=== PATIENT | male | born 1960 | race Caucasian/White ===

== ENCOUNTER → 2020-04-27 11:37 | Outpatient (CLI) | payer OTHER, SELFPAY ==
[2020-04-27 12:28] LABS: INR 1.5 (0.9-1.3)
[2020-04-27 12:31] LABS: Add Manual Diff / Slide Review NO; Basophils Absolute Auto 0 /uL (0-100); Basophils Percent Auto 0.9 % (0-2); Eosinophils Absolute Auto 500 /uL (0-450); Eosinophils Percent Auto 13.6 % (2-4); Hematocrit 40.5 % (41-53); Hemoglobin 13.7 g/dL (13.5-17.5); Lymphocytes Absolute Auto 1100 /uL (1100-4500); Lymphocytes Percent Auto 32.8 % (25-40); Mean Corpuscular HGB Conc 33.8 % (30-36); Mean Corpuscular Hemoglobin 33.6 PG (26-34); Mean Corpuscular Volume 99.5 fL (80-100); Monocytes Absolute Auto 200 /uL (0-900); Monocytes Percent Auto 5.6 % (3-14); Neutrophils Absolute Auto 1600 /uL (1500-7000); Neutrophils Percent Auto 47.1 % (50-75); Platelet Count 90 X10^3/uL (150-400); Red Blood Cell Count 4.07 X10^6/uL (4.5-5.9); Red Cell Distribution Width 14.9 % (11.6-14.8); White Blood Cell Count 3.4 X10^3/uL (4.5-11.0)
[2020-04-27 12:35] LABS: Alanine Aminotransferase 36 IU/L (<50); Albumin 3.7 g/dL (3.5-5.0); Alkaline Phosphatase 157 U/L (38-126); Aspartate Aminotransferase 69 IU/L (17-59); BUN Creatinine Ratio 12.8 (6-22); Bilirubin Total 2.5 mg/dL (0.2-1.3); Blood Urea Nitrogen 12 mg/dL (9-20); Calcium 9.2 mg/dL (8.4-10.2); Carbon Dioxide 26 mmol/L (22-32); Chloride 108 mmol/L (98-107); Estimated Glomerular Filt Rate > 60.0 mL/min (>60); Globulin 3.6 g/dL (1.7-4.1); Glucose 133 mg/dL (70-100); HEMOLYSIS < 15 (0-50); Sodium 139 mmol/L (137-145); Total Protein 7.3 g/dL (6.3-8.2)
[2020-04-27 13:09] LABS: Ferritin 252 ng/mL (18-464)
[2020-04-27 13:40] LABS: Total Iron Binding Capacity 340 ug/dL (261-462)
[2020-04-28 07:36] LABS: Alpha 1 Anti Trypsin 154 mg/dL (101-187); Ceruloplasmin 24.5 mg/dL (16.0-31.0); Hepatitis A Antibody Total Positive (Negative); Hepatitis B Surf AB Quant <3.1 mIU/mL (Immunity>9.9)
[2020-04-29 15:34] LABS: Hepatitis B Surface Antigen NEGATIVE s/c (NEGATIVE)
[2020-04-29 15:52] LABS: Hep C Virus Ab w/Reflex Quant REACTIVE s/c (NEGATIVE)
[2020-05-01 09:02] LABS: Anti Mitochondrial ABY IGG <20.0 Units (0.0-20.0); Smooth Muscle Antibody 8 Units (0-19)
== END ==
PROVIDERS: Referring Provider Internal Medicine Gastroenterology; Visit Provider Internal Medicine Gastroenterology
DX: K70.31 Alcoholic cirrhosis of liver with ascites (principal)
CPT/HCPCS: 36415; 80053; 82103; 82390; 82728; 83516; 83550; 85025; 85610; 86706; 86708; 86803; 87340; 87522

== ENCOUNTER → 2020-05-20 11:15 | Outpatient (CLI) | payer OTHER, SELFPAY ==
[2020-05-20 12:43] LABS: COVID19 -Nasal RAPID Negative (Negative)
== END ==
PROVIDERS: Visit Provider Physician Assistant
DX: Z11.59 Encounter for screening for other viral diseases (principal)
CPT/HCPCS: 87635

== ENCOUNTER 2020-05-22 07:11 | Day surgery (SDC) | payer OTHER, SELFPAY ==
[2020-05-22 07:47] VITALS: BP 121/74; PULSE 85; RESP 20; TEMP 36.6; O2SAT 98; BMI 25.8
--- NOTE | 2020-05-22 07:50 | P.HP_ITS ---
History of Present Illness History of Present Illness Date Patient Seen: 05/22/20 Chief complaint: SDC Narrative: 60-year-old male with alcoholic cirrhosis and ascites who I had seen on 04/25/2020. Please refer to that note for further details. He is here today for an upper endoscopy for variceal screening and a colonoscopy for colorectal cancer screening Exam Narrative Exam Narrative: General: Patient is well developed, not in apparent distress Cardiovascular: Regular rate and rhythm, no murmurs, rubs, or gallops; no evidence of edema; no palpable abdominal aortic aneurysm Gastrointestinal: Normoactive bowel sounds, soft, nontender, nondistended, no rebound tenderness, no hepatosplenomegaly, no evidence of hernia Assessment & Plan Assessment & Plan narrative: 60-year-old male with alcoholic cirrhosis here for variceal screening and colon cancer screening Regarding the procedure(s), the risks and potential complications, benefits, and alternatives (including not doing the procedure) were discussed with the patient. The risks include but are not limited to bleeding, splenic injury, inf ection, perforation which may require surgical intervention, missed lesions, and adverse reactions to sedative medicines. After a question and answer period, the patient agreed to proceed with the procedure(s) and gives informed consent.
[2020-05-22] MEDS: SODIUM CHLORIDE 0.9% 1,000 ML 70 ML IV (08:01)
--- NOTE | 2020-05-22 08:22 | P.OP.ENDO_ITS ---
Operative Date/Time/Diagnoses Date of procedure: 05/22/20 Procedure Notes Procedure in detail: Surgeon: Mack Castañeda MD Procedure: Esophagogastroduodenoscopy Preoperative diagnosis: Variceal screening, colon cancer screening Postoperative diagnosis: 1 column small esophageal varices, mild portal hypertensive gastropathy; sigmoid diverticulosis; grade 2 internal hemorrhoids Medications: Viscous lidocaine gargle, Conscious sedation using 8 mg IV of Midazolam and 150 mcg IV of Fentanyl for the EGD and 10 mg IV of Midazolam and 200 mcg IV of Fentanyl(total for both procedures) Preanesthesia Assessment An H and P was performed/updated and the Px?s ASA class is 2. The procedure was discussed in detail with the patient. The potential risks and complications including infection, bleeding, missed lesions, perforation, need for surgery in case of perforation, prolonged hospital stay, and were explained. A brief question and answer period was allotted and once all questions were answered, informed consent was obtained. The patient was brought back to the procedure room and placed on standard monitoring. The patient?s vital signs were monitored continuously throughout the entire procedure. Prior to starting, a timeout was performed to confirm the patient?s identity, allergies, medications, and procedure. Procedure in detail The patient was placed in left lateral decubitus position and a bite block was inserted. The tip of the upper endoscope was placed into the mouth and advanced without difficulty under direct visualization into the esophagus. Esophagus: 1 column small (3mm) varix in distal esophagus with no evidence of high-risk stigmata Stomach: Mild portal hypertensive gastropathy in the fundus and body; no evidence of gastric varices Duodenum: Normal-appearing visualized duodenum After the upper endoscopy, preparations were made for the colonoscopy. Once adequate sedation was obtained, a CHRISTIANO was performed. The digital rectal examination did not reveal any palpable lesions. The tip of the colonoscope was placed in the anal canal and advanced without difficulty all the way to the cecum which was identified by the appendiceal orifice and the ileocecal valve. The terminal ileum was intubated to a distance of 5 cm from the ileocecal valve and showed no abnormality. The colonoscope was brought back to the cecum careful examination was performed with irrigation of any residual stool. In the sigmoid colon there was note of few medium-sized diverticula. The remainder of the visualized colonic mucosa showed no abnormalities Retroflexion performed in the rectum revealed grade 2 internal hemorrhoids The patient tolerated the procedure well and will be brought back to the recovery area to be discharged once criteria are met. The prep was judged to be good and adequate to identify polyps less than 5 mm. The withdrawal time was 12 minutes. The total physician intraservice time was 31 minutes. Complications There were no complications and estimated blood loss was none. Recommendations: Resume previous diet Continue outpatient medications Repeat upper endoscopy in 1 year Repeat colonoscopy in 10 years Follow-up with me in Jul 2020 An emergency contact number was given to the patient for any complications re lated to the procedure
[2020-05-22] MEDS: LIDOCAINE 4% SOLN 50 ML 20 ML TOP (08:25)
[2020-05-22] MEDS: MIDAZOLAM 5 MG/5 ML VIAL IV (08:40)
[2020-05-22] MEDS: fentaNYL 250 MCG/5 ML INJ IV (08:47)
[2020-05-22 09:09] VITALS: BP 111/65; PULSE 95; RESP 16; TEMP 36.3; O2SAT 96
[2020-05-22 09:14] VITALS: BP 111/75; PULSE 97; RESP 18; O2SAT 96
[2020-05-22 09:20] VITALS: BP 109/68; PULSE 86; RESP 20; O2SAT 95
[2020-05-22 09:27] VITALS: BP 115/62; PULSE 83; RESP 89; TEMP 36.3; O2SAT 98
[2020-05-22 09:45] VITALS: BP 121/70; PULSE 79; RESP 16; TEMP 36.6; O2SAT 99
--- NOTE | 2020-05-22 09:51 | SUR.PHASEII ---
Assumed care from ANAMARIA Issa. Pt assisted to w/c. katie called. Pt w/o pain or discomfort and left in stable condition.
== END 2020-05-22 09:52 | disposition home or self-care (01) ==
PROVIDERS: Referring Provider Internal Medicine Gastroenterology; Visit Provider Internal Medicine Gastroenterology
PROC: 0DJ08ZZ Inspection of Upper Intestinal Tract, Via Natural or Artificial Opening Endoscopic (ICD-10-PCS; CPT 43235; principal; 2020-05-22 08:30)
PROC: 0DJD8ZZ Inspection of Lower Intestinal Tract, Via Natural or Artificial Opening Endoscopic (ICD-10-PCS; CPT 45378; 2020-05-22 08:30)
DX: Z12.11 Encounter for screening for malignant neoplasm of colon (principal); Z13.89 Encounter for screening for other disorder; K70.31 Alcoholic cirrhosis of liver with ascites; K76.6 Portal hypertension; K31.89 Other diseases of stomach and duodenum; I85.10 Secondary esophageal varices without bleeding; K57.30 Diverticulosis of large intestine without perforation or abscess without bleeding; K64.1 Second degree hemorrhoids
CPT/HCPCS: 43235; 45378; J2250; J3010

== ENCOUNTER → 2020-09-19 09:35 | Outpatient (CLI) | payer OTHER, SELFPAY ==
--- NOTE | 2020-09-19 09:39 | DI.US.S_ITS ---
PROCEDURE: US ABDOMEN COMPLETE INDICATIONS: CIRRHOSIS TECHNIQUE: Real-time scanning was performed of the abdominal and retroperitoneal organs, with image documentation. COMPARISON: None. FINDINGS: Liver: Liver is normal in size and homogeneous in echotexture. Minimal nodularity can be seen of the wall of the anterior liver. Gallbladder: 2 small nonobstructing gallstones are seen. The gallbladder wall is not thickened, measuring 3 mm or less. No specific pericholecystic fluid is seen. The sonographic Gordon sign is negative. Biliary ducts: Intrahepatic bile ducts are non-dilated. Extrahepatic bile duct caliber measures 3 mm. Normal is 6-7 mm or less in diameter, or 10 mm or less post-cholecystectomy. Pancreas: Within the pancreas, there is a 0.9 x 1 x 3.1 cm hypoechoic solid mass, without abnormal vascularity. Spleen: Spleen is normal in size and homogeneous in echotexture. Kidneys: Kidneys are normal in size and echotexture. Right kidney measures 11.9 cm long; left kidney measures 11.3 cm long. No hydronephrosis or nephrolithiasis. No solid masses. The renal cortex measures within normal limits for thickness. Aorta: Visualized aorta is normal in caliber at less than 3 cm. Iliacs: Proximal common iliac arteries are normal in caliber at less than 2.5 cm. IVC: Intrahepatic inferior vena cava is patent. Miscellaneous: No free abdominal fluid. Note is made of dilated veins adjacent to the gallbladder and right kidney. IMPRESSION: Minimal nodularity seen of the wall of the anterior liver. There is an apparent pancreatic mass seen. A follow-up pancreas protocol CT is now recommended for further evaluation. Dilated veins are seen, which may be related to gastric varices. Gallstones are seen, yet without additional sonographic signs of cholecystitis. Note: Findings and recommendations relayed to Dr. Castañeda via office staff, [place], at 9:42 a.m. [place] time on September 19, 2020. Dr. Castañeda will call back if there are any questions. Dictated by: Jam Jacobo M.D. on 09/19/2020 at 9:37 Approved by: Jam Jacobo M.D. on 09/19/2020 at 9:44
== END ==
PROVIDERS: PCP Internal Medicine; Referring Provider Internal Medicine Gastroenterology; Visit Provider Internal Medicine Gastroenterology
DX: K70.31 Alcoholic cirrhosis of liver with ascites (principal); K86.2 Cyst of pancreas; K80.80 Other cholelithiasis without obstruction
CPT/HCPCS: 76700

== ENCOUNTER → 2020-09-25 08:26 | Outpatient (CLI) | payer OTHER, SELFPAY ==
--- NOTE | 2020-09-25 | DI.CT.S_ITS ---
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 Hypoechoic pancreatic mass found on ultrasound. TECHNIQUE: After the administration of oral and intravenous contrast, 5 mm thick sections acquired from the diaphragms to the symphysis. 5 mm thick coronal and sagittal reformats were performed. For radiation dose reduction, the following was used: automated exposure control, adjustment of mA and/or kV according to patient size. COMPARISON: [facility], US, US ABDOMEN COMPLETE, 09/19/2020, 9:45. FINDINGS: Image quality: Excellent. ABDOMEN: Lung bases: Lung bases are clear. Heart size is normal. Solid organs: There is surface nodularity of the liver consistent with fatty change. There is diffuse hepatic steatosis. No suspicious liver masses. Gallbladder contains tiny calcified gallstones. No gallbladder wall thickening. Biliary system is non-dilated. Pancreas enhances normally. There is no identification of a mass involving the pancreas. Spleen is normal in size and enhancement. No adrenal nodules. Kidneys are normal in size and enhancement, without hydronephrosis. Peritoneum and bowel: Stomach, small bowel, and colon loops are normal in caliber and wall thickness. No free fluid or air. Nodes and vessels: No retroperitoneal or mesenteric adenopathy. Aorta and inferior vena cava are normal in caliber. Right upper abdomen varicosities. Miscellaneous: No ventral hernias. PELVIS: Genitourinary: Bladder wall thickness is normal. Miscellaneous: No inguinal hernias or adenopathy. Bones: No suspicious bony lesions. No vertebral body compression fractures. IMPRESSION: 1. No pancreatic mass identified. 2. Cirrhosis. 3. Right upper quadrant varicosities are consistent with the presence of portal venous hypertension. 4. Cholelithiasis. Dictated by: Walt Gonzáles M.D. on 09/25/2020 at 10:48 Approved by: Walt Gonzáles M.D. on 09/25/2020 at 10:57
== END ==
PROVIDERS: PCP Internal Medicine; Referring Provider Internal Medicine Gastroenterology; Visit Provider Internal Medicine Gastroenterology
DX: D37.8 Neoplasm of uncertain behavior of other specified digestive organs (principal); K70.31 Alcoholic cirrhosis of liver with ascites; K80.20 Calculus of gallbladder without cholecystitis without obstruction
CPT/HCPCS: 74177; Q9967